=== PATIENT | male | born 1990 | race Caucasian/White ===

== ENCOUNTER 2019-12-18 15:41 | Emergency (ER) | payer OTHER ==
[~2019-12-18] VITALS: Ht 182.9 cm; Wt 142.9 kg
[2019-12-18 16:21] LABS: ABSOLUTE EOSINOPHILS 0.1 thou/uL (0.0-0.7); ABSOLUTE LYMPHOCYTES 4.4 thou/uL (0.8-5.3); ABSOLUTE MONOCYTES 0.8 thou/uL (0.0-1.2); ABSOLUTE NEUTROPHILS 4.8 thou/uL (1.6-8.1); BASOPHILS 0.1 %; EOSINOPHILS 1.4 %; HEMATOCRIT 47.3 % (42.0-52.0); HEMOGLOBIN 16.4 gm/dL (14.0-18.0); LYMPHOCYTES 43.3 %; MCH 31.2 pg (26.0-34.0); MCHC 34.6 g/dL (28.0-37.0); MCV 90.2 fL (80.0-100.0); MONOCYTES 8.1 %; MPV 7.1 fl. (7.2-11.1); NUCLEATED RBCS 0 /100WBC; PLATELET COUNT* 307 thou/uL (150-400); POLYS 47.1 %; RBC 5.25 mil/uL (4.50-6.00); RDW-CV 13.1 % (10.5-14.5); WBC 10.2 thou/uL (4.0-11.0)
[2019-12-18 16:31] LABS: CALCIUM 8.9 mg/dL (8.5-10.1); CREATININE 1.2 mg/dL (0.6-1.3); POTASSIUM 3.8 mmol/L (3.5-5.1)
[2019-12-18 16:41] LABS: ALBUMIN 4.1 g/dL (3.4-5.0); MAGNESIUM 2.1 mg/dL (1.8-2.4); TOTAL BILIRUBIN 0.4 mg/dL (<0.1-1.0); TOTAL PROTEIN 7.6 g/dL (6.4-8.2)
[2019-12-18 18:45] VITALS: BP 135/70
--- NOTE | 2019-12-20 10:24 | EKG ---
[place] [address] ELECTROCARDIOGRAM REPORT Name: VLAD ORTIZ Room: [facility]#: [id number] Admission: 12/18/19 Attend Phys: Discharge: 12/18/19 Date of : [birth year] Date of Service: 12/18/19 1547 Report #: [id number] THIS REPORT FOR: //name// [facility] ED Test Date: 2019-12-18 Test Time: 15:47:15 Pat Name: VLAD ORTIZ Department: Room: Gender: [employer]: : 1990 Requested By: Juan Francisco Stafford Order Number: [id number] MD: Malcolm Moreno Measurements Intervals [place] Rate: 78 P: 37 OR: 137 QRS: 11 QRSD: 107 T: 50 QT: 372 QTc: 424 Interpretive Statements Sinus rhythm RSR' in V1 or V2, probably normal variant ST elev, probable normal early repol pattern Baseline wander in lead(s) V6 No previous ECG available for comparison Electronically Signed On 12-20-2019 10:23:53 CDT by Malcolm Moreno [email or web address] <ELECTRONICALLY SIGNED> By: Malcolm Moreno MD, FACC 12/20/19 1023 1547 1547 Malcolm Moreno MD, [facility] /EPI
--- NOTE | 2019-12-20 10:25 | EKG ---
[place] [address] ELECTROCARDIOGRAM REPORT Name: VLAD ORTIZ Room: [facility]#: [id number] Admission: 12/18/19 Attend Phys: Discharge: 12/18/19 Date of : [birth year] Date of Service: 12/18/19 1749 Report #: [id number] THIS REPORT FOR: //name// [facility] ED Test Date: 2019-12-18 Test Time: 17:49:37 Pat Name: VLAD ORTIZ Department: Room: Gender: [employer]: [facility] : 1990 Requested By: Juan Francisco Stafford Order Number: [id number] MD: Malcolm Moreno Measurements Intervals [place] Rate: 57 P: 17 WI: 146 QRS: -8 QRSD: 116 T: 33 QT: 404 QTc: 394 Interpretive Statements Sinus rhythm Nonspecific intraventricular conduction delay Compared to ECG 12/18/2019 15:47:15 rate has slowed Electronically Signed On 12-20-2019 10:24:54 CDT by Malcolm Moreno [email or web address] <ELECTRONICALLY SIGNED> By: Malcolm Moreno MD, [facility] 12/20/19 1024 1749 1749 Malcolm Moreno MD, [facility] /EPI
== END 2019-12-18 18:46 | disposition home or self-care (01) ==
LOC: M.ERS 15:41
PROVIDERS: Emergency Medicine Emergency Medical Services
DX: R07.89 Other chest pain (principal); Z90.49 Acquired absence of other specified parts of digestive tract; Z86.19 Personal history of other infectious and parasitic diseases